=== PATIENT | male | born 1955 | race Caucasian/White ===

== ENCOUNTER 2019-01-26 07:30 | Day surgery (SDC) | payer BC ==
[2019-01-25 10:20] VITALS: BMI 18.7
[~2019-01-26 07:30] MED LIST: ACETAMINOPHEN 325 MG TABLET (FP) PO PRN
--- NOTE | 2019-01-26 07:33 | HP ---
- Patient Scheduled date of Surgery: 01/26/19 Scheduled Surgical Procedure: Phacoemulsification and cataract extraction with PCIOL Affected Eye: Left Chief Complaint (Indication for surgery): Decreased vision affecting ADLs - Ocular History Other Eye History: POAG Eye Medications: cosopt Previous Eye Surgery: none - Medical History Illnesses: Other (prostate Ca s/p radical prostatectomny, cervical radiculopathy , HTN) Current Medications: Ambulatory Orders Dorzolamide HCl/Timolol Maleat [Dorzolamide-Timolol Eye Drops] 1 drop OP BID Lisinopril [Zestril] 2.5 mg PO DAILY 01/25/19 Allergies/Adverse Reactions: Allergies Allergy/AdvReac Type Severity Reaction Status Date / Time No Known Allergies Allergy Verified 04/27/14 09:39 Ocular Examination - Best Corrected Visual Acuity Distance: Right eye: 20/50 Distance: Left eye: 20/50 - External/Slit Lamp Examination Abnormalities: none - Intraocular Pressure Intraocular Pressure - Right eye: 15 Intraocular Pressure-Left eye: 15 - Lens Lens: 2+ NS trace cortical changes - Vitreous/Retina Vitreous/Retina: C:D 0.5 m/v/p wnl - Special Examination M - Right eye: +2.75-0.25 x 180 M - Left eye: +2.75 -0.25 x 125 K - Right eye: 43.75/44.50 x 090 K - Left eye: 43.75/44 x 075 AL - Right eye: 23.39 AL - Left eye: 23.44 IOL bag: +20.5 AUOOTO IOL sulcus: +19.5 MN60AC IOL AC: +17.0 MTA4UO - Impression Impression: Cataract Left Eye - Plan Plan: Phacoemulsification and cataract extraction - IOL Left eye Post-hospital care will be provided in office on: 01/27/19
--- NOTE | 2019-01-26 07:35 | HP ---
History & Physical Update - History History: No Change - Physical Physical: No Change - Assessment Assessment: No Change - Plan Plan: No Change (H and P reviewed by Dr. Zepeda 01/17/19 no changes)
[2019-01-26] MEDS ORDERED: EPINEPHrine/PF 1 MG/1 ML (1:1,000) AMPULE ONE (07:54)
[2019-01-26] MEDS ORDERED: CIPROFLOXACIN HCL 0.3% OPHTH 2.5ML BOTTLE ONE (07:56)
[2019-01-26] MEDS ORDERED: TROPICAMIDE 1% OPHTH SOLN 15 ML BOTTLE ONE (07:56)
[2019-01-26] MEDS ORDERED: PHENYLEPHRINE 2.5% OPHTH SOLN 15 ML BOTTLE ONE (07:56)
[2019-01-26] MEDS ORDERED: KETOROLAC TROMETHAMINE 0.5% EYE DROP 1 DROP DROPS ONE (07:56)
[2019-01-26] MEDS: KETOROLAC TROMETHAMINE 0.5% EYE DROP 1 DROP DROPS OP SCH ×3 (08:00→08:47)
[2019-01-26] MEDS: TROPICAMIDE 1% OPHTH SOLN 15 ML BOTTLE OP SCH ×3 (08:00→08:47)
[2019-01-26] MEDS: PHENYLEPHRINE 2.5% OPHTH SOLN 15 ML BOTTLE OP SCH ×3 (08:00→08:47)
[2019-01-26] MEDS: CIPROFLOXACIN HCL 0.3% OPHTH 2.5ML BOTTLE OP SCH ×2 (08:00→08:47)
[2019-01-26] MEDS ORDERED: MIDAZOLAM HCL 2 MG/2 ML SINGLE DOSE VIAL ONE (09:14)
[2019-01-26] MEDS ORDERED: POVIDONE-IODINE 5% OPHTHALMIC PREP 30 ML SOLUTION OS ONE (09:39)
[2019-01-26] MEDS ORDERED: TETRACAINE 0.5% OPHTH SOLN 2 ML BOTTLE OS ONE (09:42)
[2019-01-26] MEDS ORDERED: BSS (NA/CA/MG/K) BALANCED SALT SOLUTION OPHTH SOLN 15 ML BOTTLE OS ONE (09:44)
[2019-01-26] MEDS ORDERED: CHONDROITIN SU A/HYALUR SOD 1 KIT IO ONE (09:44)
[2019-01-26] MEDS ORDERED: LIDOCAINE HCL 1%, 10 MG/ML (20ML VIAL) NR ONE (09:44)
[2019-01-26] MEDS ORDERED: EPINEPHrine/PF 1 MG/1 ML (1:1,000) AMPULE SQ ONE (09:51)
[2019-01-26] MEDS ORDERED: TOBRAMYCIN/DEXAMETHASONE OPHTH. OINTMENT 1 TUBE OS ONE (09:52)
--- NOTE | 2019-01-26 10:09 | OP ---
Ophthalmology Operative Note Pre-Operative Diagnosis: Cataract Affected Eye: Left Operation: Phacoemulsification and cataract extraction with PCIOL Findings: NS cataract left eye Post-Operative Diagnosis: Same as Pre-op Motorcycle Engine Assembler: None Anesthesiologist: Cuate Long Anesthesia: Topical Specimens Removed: none Estimated blood loss: < 1cc Drains & Tubes with Location: none Operative Report Dictated: Yes
[2019-01-26 10:21] VITALS: TEMP 98.3
[2019-01-26 10:54] VITALS: BP 131/87; PULSE 81
--- NOTE | 2019-01-30 15:55 | OP ---
DATE OF OPERATION: 01/26/2019 PREOPERATIVE DIAGNOSIS: Nuclear sclerotic cataract, left eye. POSTOPERATIVE DIAGNOSIS: Nuclear sclerotic cataract, left eye. PROCEDURE: Phacoemulsification and cataract extraction with insertion of posterior chamber intraocular lens, left eye. SURGEON: Yola Miles MD WINDOW INSTALLATION SUBCONTRACTOR: None. ANESTHESIA: Topical. ANESTHESIOLOGIST: Cuate Long CRNA OPERATIVE PROCEDURE: The patient received Tetracaine eye drops and was gently sedated and prepped and draped in the usual sterile fashion so as to expose only the left eye. Ophthalmic Betadine was instilled into the inferior fornix and lashes were taped out of the surgical field. An eyelid speculum was placed into the left eye. Paracentesis was made in inferior temporal clear cornea at the limbus. Then 0.5 mL of nonpreserved lidocaine 1% was injected into the anterior chamber and then 1 mL of dilute epinephrine 1:10,000 was injected into the anterior chamber to improve pupillary dilation. Viscoelastic material was instilled into the anterior chamber via the paracentesis. A 2.4-mm keratome blade was then used to create the main incision in temporal clear cornea at the limbus. A continuous curvilinear capsulorrhexis was performed using a cystotome and Utrata forceps. Hydrodissection of the lens cortex was performed using BSS on a cannula until the nucleus was noted to be freely rotating. The phacoemulsification tip was then inserted via the main wound and used to scope 2 perpendicular grooves into the lens nucleus. The nucleus was cracked into 4 quadrants. Each quadrant was lifted out of the capsule into the iris plane and individually phacoemulsified. The remaining cortical material was then aspirated using the irrigation/aspiration port. The capsular bag was inflated using ProVisc and a preloaded AcrySof lens model AU00T0 power 20.5 diopters was injected into the capsular bag. It was centered using a Sinskey hook. The residual viscoelastic material was removed from the anterior chamber using irrigation and aspiration. The wound edges were hydrated using BSS. The wound was tested for leakage and was found to be watertight. Tobradex ointment was placed in the eye, and the speculum was removed from the eye, and the eyelid was closed. A sterile dressing and shield were placed over the eye. The patient was transferred to the recovery room in stable condition, told to follow up in 1 day. Donna [id number]
== END 2019-01-26 10:35 | disposition home or self-care (01) ==
LOC: JASU-SURG 07:30
PROVIDERS: ATTEND Ophthalmology
PROC: 08RK3JZ Replacement of Left Lens with Synthetic Substitute, Percutaneous Approach (ICD-10-PCS; principal; 2019-01-26 09:30)
DX: H25.12 Age-related nuclear cataract, left eye (principal)

== ENCOUNTER 2019-02-02 06:29 | Day surgery (SDC) | payer BC ==
[2019-02-01 13:27] VITALS: BMI 18.7
[~2019-02-02 06:29] MED LIST changes: -ACETAMINOPHEN 325 MG TABLET (FP) PO PRN; +TOBRAMYCIN/DEXAMETHASONE OPHTH. OINTMENT 1 TUBE OD ONE
[2019-02-02] MEDS ORDERED: ACETAMINOPHEN 325 MG TABLET (FP) PO PRN (06:45)
[2019-02-02] MEDS ORDERED: TROPICAMIDE 1% OPHTH SOLN 15 ML BOTTLE ONE (07:23)
[2019-02-02] MEDS ORDERED: PHENYLEPHRINE 2.5% OPHTH SOLN 15 ML BOTTLE ONE (07:23)
[2019-02-02] MEDS ORDERED: KETOROLAC TROMETHAMINE 0.5% EYE DROP 1 DROP DROPS ONE (07:23)
[2019-02-02] MEDS ORDERED: CIPROFLOXACIN HCL 0.3% OPHTH 2.5ML BOTTLE ONE (07:23)
[2019-02-02] MEDS ORDERED: TOBRAMYCIN/DEXAMETHASONE OPHTH. OINTMENT 1 TUBE ONE (07:25)
[2019-02-02] MEDS ORDERED: EPINEPHrine/PF 1 MG/1 ML (1:1,000) AMPULE ONE (07:25)
[2019-02-02] MEDS ORDERED: CHONDROITIN SU A/HYALUR SOD 1 KIT ONE (07:25)
--- NOTE | 2019-02-02 07:29 | HP ---
- Patient Scheduled date of Surgery: 02/02/19 Scheduled Surgical Procedure: Phacoemulsification and cataract extraction with PCIOL Affected Eye: Right Chief Complaint (Indication for surgery): Decreased vision affecting ADLs - Ocular History Other Eye History: POAG Eye Medications: moxifloxacin 3/0, cosopt 2/20, ilevro 0/1, pred forte 0/3 Previous Eye Surgery: s/p ce/pciol os s/p ALT - Medical History Illnesses: Hypertension, Other (gerd, prostate CA) Current Medications: Ambulatory Orders Dorzolamide HCl/Timolol Maleat [Dorzolamide-Timolol Eye Drops] 1 drop OP BID Lisinopril [Zestril] 2.5 mg PO DAILY 01/25/19 Allergies/Adverse Reactions: Allergies Allergy/AdvReac Type Severity Reaction Status Date / Time No Known Allergies Allergy Verified 02/02/19 07:18 Ocular Examination - Best Corrected Visual Acuity Distance: Right eye: 20/50 Distance: Left eye: 20/20-2 - External/Slit Lamp Examination Abnormalities: spk, pigment on endo - Intraocular Pressure Intraocular Pressure - Right eye: 15 Intraocular Pressure-Left eye: 18 - Lens Lens: 2+ NS 1-2+psc - Vitreous/Retina Vitreous/Retina: c:d 0.5 m/v/p wnl - Special Examination M - Right eye: +2.75 M - Left eye: +1.00-0.50 x 105 K - Right eye: 43.75/44.50 x85 K - Left eye: 43.75/44 x 069 AL - Right eye: 23.39 AL - Left eye: 23.44 IOL bag: +21.0 AUOOTO IOL sulcus: +20.0 MN60AC IOL AC: +17.5 MTA4UO - Plan Plan: Phacoemulsification and cataract extraction - IOL Right eye Post-hospital care will be provided in office on: 02/03/19
--- NOTE | 2019-02-02 07:30 | HP ---
History & Physical Update - History History: No Change - Physical Physical: No Change - Assessment Assessment: No Change - Plan Plan: No Change (H and p reviewed by Dr Zepeda 01/16/19 no changes)
[2019-02-02] MEDS ORDERED: MIDAZOLAM HCL 2 MG/2 ML SINGLE DOSE VIAL ONE (07:31)
[2019-02-02] MEDS: CIPROFLOXACIN HCL 0.3% OPHTH 2.5ML BOTTLE OP SCH ×3 (07:32→08:12)
[2019-02-02] MEDS: TROPICAMIDE 1% OPHTH SOLN 15 ML BOTTLE OP SCH ×3 (07:32→08:13)
[2019-02-02] MEDS: KETOROLAC TROMETHAMINE 0.5% EYE DROP 1 DROP DROPS OP SCH ×3 (07:32→08:12)
[2019-02-02] MEDS ORDERED: LIDOCAINE HCL/PF 1% SDV 5ML VIAL ONE (07:32)
[2019-02-02] MEDS: PHENYLEPHRINE 2.5% OPHTH SOLN 15 ML BOTTLE OP SCH ×3 (07:32→08:13)
[2019-02-02] MEDS ORDERED: TETRACAINE 0.5% OPHTH SOLN 2 ML BOTTLE ONE (07:33)
[2019-02-02] MEDS ORDERED: BSS (NA/CA/MG/K) BALANCED SALT SOLUTION OPHTH SOLN 15 ML BOTTLE ONE (07:33)
[2019-02-02] MEDS ORDERED: TETRACAINE 0.5% OPHTH SOLN 2 ML BOTTLE OD ONE (09:05)
[2019-02-02] MEDS ORDERED: POVIDONE-IODINE 5% OPHTHALMIC PREP 30 ML SOLUTION OD ONE (09:06)
[2019-02-02] MEDS ORDERED: CHONDROITIN SU A/HYALUR SOD 1 KIT IO ONE (09:12)
[2019-02-02] MEDS ORDERED: BSS (NA/CA/MG/K) BALANCED SALT SOLUTION OPHTH SOLN 15 ML BOTTLE OD ONE (09:12)
[2019-02-02] MEDS ORDERED: LIDOCAINE HCL 1% PRESERVATIVE FREE - 30ML VIAL IO ONE (09:12)
[2019-02-02] MEDS ORDERED: EPINEPHrine/PF 1 MG/1 ML (1:1,000) AMPULE SQ ONE (09:17)
[2019-02-02] MEDS ORDERED: TOBRAMYCIN/DEXAMETHASONE OPHTH. OINTMENT 1 TUBE OD ONE (09:28)
--- NOTE | 2019-02-02 09:34 | OP ---
Ophthalmology Operative Note Pre-Operative Diagnosis: Cataract Affected Eye: Right Operation: Phacoemulsification and cataract extraction with PCIOL Findings: Nuclear sclerotic cataract right eye Post-Operative Diagnosis: Same as Pre-op Barn Worker: None Anesthesiologist: Fredy Monique Anesthesia: Topical Specimens Removed: none Estimated blood loss: < 1cc Drains & Tubes with Location: none Operative Report Dictated: Yes
[2019-02-02 09:43] VITALS: TEMP 97.8
[2019-02-02 10:34] VITALS: BP 112/74; PULSE 71
--- NOTE | 2019-02-02 14:42 | OP ---
DATE OF OPERATION: DATE OF DICTATION: 02/02/2019 PREOPERATIVE DIAGNOSIS: Nuclear sclerotic cataract, right eye. POSTOPERATIVE DIAGNOSIS: Nuclear sclerotic cataract, right eye. PROCEDURE: Phacoemulsification and cataract extraction with insertion of posterior chamber intraocular lens, right eye. SURGEON: Yola Miles MD FRACTIONATION PLANT SUPERVISOR: None. ANESTHESIA: Topical. ANESTHESIOLOGIST: OPERATIVE PROCEDURE: The patient received Tetracaine eye drops and was gently sedated and prepped and draped in the usual sterile fashion so as to expose only the right eye. Ophthalmic Betadine was instilled into the inferior fornix and lashes were taped out of the surgical field. An eyelid speculum was placed into the right eye. Paracentesis was made in superior temporal clear cornea at the limbus. Then 0.5 mL of nonpreserved lidocaine 1% was injected into the anterior chamber and then 1 mL of dilute epinephrine 1:10,000 was injected into the anterior chamber to improve pupillary dilation. Viscoelastic material was instilled into the anterior chamber via the paracentesis. A 2.4-mm keratome blade was then used to create the main incision in temporal clear cornea at the limbus. A continuous curvilinear capsulorhexis was performed using a cystotome and Utrata forceps. Hydrodissection of the lens cortex was performed using BSS on a cannula until the nucleus was noted to be freely rotating. The phacoemulsification tip was then inserted via the main wound and used to scope 2 perpendicular grooves into the lens nucleus. The nucleus was cracked into 4 quadrants. Each quadrant was lifted out of the capsule into the iris plane and individually phacoemulsified. The remaining cortical material was then aspirated using the irrigation/aspiration port. The capsular bag was inflated using ProVisc and a preloaded AcrySof lens model AU00T0 power +21.0 diopters was injected into the capsular bag. It was centered using a Sinskey hook. The residual viscoelastic material was removed from the anterior chamber using irrigation and aspiration. The wound edges were hydrated using BSS. The wound was tested for leakage and was found to be watertight. Tobradex ointment was placed in the eye, and the speculum was removed from the eye, and the eyelid was closed. A sterile dressing and shield were placed over the eye. The patient was transferred to the recovery room in stable condition, told to follow up in 1 day. Donna [id number]
== END 2019-02-02 10:10 | disposition home or self-care (01) ==
LOC: JASU-SURG 06:29
PROVIDERS: ATTEND Ophthalmology
PROC: 08RJ3JZ Replacement of Right Lens with Synthetic Substitute, Percutaneous Approach (ICD-10-PCS; principal; 2019-02-02 08:30)
DX: H25.11 Age-related nuclear cataract, right eye (principal)

== ENCOUNTER 2021-05-07 12:30 | Emergency (ER) | payer OTHER, BC ==
[2021-05-07 13:00] VITALS: BP 132/80; PULSE 94; TEMP 98; BMI 21.2
[2021-05-07] MEDS ORDERED: KETOROLAC TROMETHAMINE 15 MG/ML VIAL IM ONE (13:47)
[2021-05-07] MEDS ORDERED: KETOROLAC TROMETHAMINE 15 MG/ML VIAL ONE (13:50)
== END 2021-05-07 14:51 | disposition home or self-care (01) ==
LOC: JERFT 12:30
PROC: 3E0233Z Introduction of Anti-inflammatory into Muscle, Percutaneous Approach (ICD-10-PCS; principal; 2021-05-07)
DX: S42.202A Unspecified fracture of upper end of left humerus, initial encounter for closed fracture (principal); W01.0XXA Fall on same level from slipping, tripping and stumbling without subsequent striking against object, initial encounter
CPT/HCPCS: 73030-TC-LT-FY; 73060-TC-LT-FY; 99284-25